=== PATIENT | male | born 1980 | race Two or more races ===

== ENCOUNTER 2023-09-05 15:38 | Emergency (ER) | payer SELFPAY ==
[~2023-09-05] VITALS: Ht 162.6 cm; Wt 64.4 kg
[2023-09-05] MEDS ORDERED: TETRACAINE HCL 0.5% OPHT DROP 2 ML BOTTLE ONE (15:54)
[2023-09-05] MEDS ORDERED: FLUORESCEIN SODIUM 1 MG STRIP ONE (15:54)
[2023-09-05] MEDS: FLUORESCEIN SODIUM 1 MG STRIP OP ONE (15:59)
[2023-09-05] MEDS: TETRACAINE HCL 0.5% OPHT DROP 2 ML BOTTLE OP ONE (15:59)
[2023-09-05] MEDS ORDERED: CIPR2.5D14 LEFTEYE (16:19)
[2023-09-05 16:23] VITALS: BP 139/84; TEMP 98; O2SAT 99
== END 2023-09-05 16:23 | disposition home or self-care (01) ==
LOC: ER 15:40
DX: S00.212A Abrasion of left eyelid and periocular area, initial encounter (principal); Z79.899 Other long term (current) drug therapy; Z60.2 Problems related to living alone; X58.XXXA Exposure to other specified factors, initial encounter; Y93.89 Activity, other specified; Y92.89 Other specified places as the place of occurrence of the external cause; Y99.8 Other external cause status
CPT/HCPCS: A4606; A4663